=== PATIENT | female | born 1990 | race Caucasian/White ===

== ENCOUNTER 2017-02-07 17:54 | Emergency (ER) | payer SELFPAY | END 2017-02-07 19:17 | disposition home or self-care (01) | LOC: D.ER 17:54 | DX: K05.10 Chronic gingivitis, plaque induced (principal); J44.9 Chronic obstructive pulmonary disease, unspecified; M26.609 Unspecified temporomandibular joint disorder, unspecified side ==

== ENCOUNTER 2017-07-22 18:49 | Emergency (ER) | payer BC ==
[2017-07-22 19:50] LABS: HCG SERUM NEGATIVE (NEGATIVE)
[2017-07-22 19:52] LABS: BASOPHILS 0.3 % (0-2); EOSINOPHILS 2.8 % (0-7); HEMOGLOBIN 15.2 g/dL (12-16); IMMATURE GRANULOCYTES 0.1 % (0-5); LYMPHOCYTES 24.8 % (15-50); MCH 30.2 pg (26.0-34.0); MCHC 34.5 g/dL (31.0-37.0); MCV 87.5 fL (80.0-100.0); MEAN PLATELET VOLUME 10.3 fL (7.4-10.4); MONOCYTES 7.4 % (2-11); NEUTROPHILS 64.6 % (40-80); PLATELET COUNT 291 10x3/uL (130-400); RBC 5.03 10x6/uL (4.00-5.40); RDW 12.7 % (11.5-14.5); WBC 9.9 10x3/uL (4.8-10.8)
[2017-07-22 19:56] LABS: APPEARANCE HAZY (CLEAR); BACTERIA MODERATE /hpf (NONE SEEN); BILIRUBIN NEGATIVE (NEGATIVE); COLOR DK YELLOW (YELLOW); GLUCOSE NEGATIVE (NEGATIVE); KETONE NEGATIVE (NEGATIVE); MUCUS <1+ /lpf (NONE SEEN); NITRITE NEGATIVE (NEGATIVE); PROTEIN NEGATIVE (NEGATIVE); RED CELLS - URINE 0-5 /hpf (0-5); SPECIFIC GRAVITY 1.015 (1.005-1.020); UROBILINOGEN NORMAL (NORMAL); WHITE CELLS - URINE 25-50 /hpf (0-5)
[2017-07-22 22:46] LABS: ALBUMIN 3.8 g/dL (3.4-5.0); ANION GAP 13.8 mmol/L (8-16); BILIRUBIN - TOTAL 0.55 mg/dL (0.2-1.3); CALCIUM 9.1 mg/dL (8.5-10.1); CARBON DIOXIDE 25.8 mmol/L (21.0-32.0); POTASSIUM - SERUM 3.6 mmol/L (3.5-5.1)
== END 2017-07-23 02:00 | disposition home or self-care (01) ==
LOC: D.ER 18:49
PROVIDERS: Emergency Medicine; Physician Assistant
DX: R10.31 Right lower quadrant pain (principal); R11.2 Nausea with vomiting, unspecified; Z86.69 Personal history of other diseases of the nervous system and sense organs; N39.0 Urinary tract infection, site not specified; J44.9 Chronic obstructive pulmonary disease, unspecified; F17.200 Nicotine dependence, unspecified, uncomplicated

== ENCOUNTER 2017-08-21 21:47 | Emergency (ER) | payer BC | END 2017-08-21 22:25 | disposition home or self-care (01) | LOC: D.ER 21:47 | DX: S41.112A Laceration without foreign body of left upper arm, initial encounter (principal); W26.9XXA Contact with unspecified sharp object(s), initial encounter; Y93.89 Activity, other specified; Y92.89 Other specified places as the place of occurrence of the external cause; J44.9 Chronic obstructive pulmonary disease, unspecified ==

== ENCOUNTER 2018-04-19 11:12 | Emergency (ER) | payer BC ==
[~2018-04-19] VITALS: Ht 162.6 cm; Wt 61.4 kg
[2018-04-19 11:23] VITALS: BP 160/78; Ht 162.6 cm; Wt 61.4 kg
[2018-04-19] MEDS ORDERED: MACROBID100 MG PO (11:24)
[2018-04-19 11:54] LABS: BASOPHILS 0.2 % (0-2); EOSINOPHILS 3.2 % (0-7); HEMATOCRIT 40.4 % (36.0-48.0); HEMOGLOBIN 13.9 g/dL (12-16); IMMATURE GRANULOCYTES 0.2 % (0-5); LYMPHOCYTES 12.5 % (15-50); MCH 30.2 pg (26.0-34.0); MCHC 34.4 g/dL (31.0-37.0); MCV 87.8 fL (80.0-100.0); MONOCYTES 7.2 % (2-11); NEUTROPHILS 76.7 % (40-80); PLATELET COUNT 278 10x3/uL (130-400); RDW 13.3 % (11.5-14.5); WBC 12.7 10x3/uL (4.8-10.8)
[2018-04-19 12:04] LABS: UDS - AMPHET NEGATIVE QUAL (NEGATIVE); UDS - BARB NEGATIVE QUAL (NEGATIVE); UDS - BENZO NEGATIVE QUAL (NEGATIVE); UDS - COCAINE NEGATIVE QUAL (NEGATIVE); UDS - OPIATE NEGATIVE QUAL (NEGATIVE); UDS - PCP NEGATIVE QUAL (NEGATIVE); UDS - THC NEGATIVE QUAL (NEGATIVE)
[2018-04-19 12:15] LABS: ALBUMIN 3.7 g/dL (3.4-5.0); ALKALINE PHOSPHATASE 75 U/L (46-116); ALT (SGPT) 26 U/L (10-68); BILIRUBIN - TOTAL 0.15 mg/dL (0.2-1.3); CALC OSMOLALITY 274 mosm/kg (275-300); CALCIUM 8.8 mg/dL (8.5-10.1); CARBON DIOXIDE 30.8 mmol/L (21.0-32.0); CHLORIDE - SERUM 102 mmol/L (98-107); CREATININE - SERUM 0.6 mg/dL (0.6-1.3); GLUCOSE 87 mg/dL (74-106); POTASSIUM - SERUM 4.5 mmol/L (3.5-5.1); PROTEIN - SERUM 7.3 g/dL (6.4-8.2); SODIUM 140 mmol/L (136-145); UREA NITROGEN 4 mg/dL (7-18); eGFR NON AFRICAN AMERICAN > 90 mL/min (90-120)
[2018-04-19 12:52] LABS: APPEARANCE CLEAR (CLEAR); BILIRUBIN NEGATIVE (NEGATIVE); COLOR STRAW (YELLOW); GLUCOSE NEGATIVE (NEGATIVE); KETONE NEGATIVE (NEGATIVE); NITRITE NEGATIVE (NEGATIVE); PROTEIN NEGATIVE (NEGATIVE); SPECIFIC GRAVITY 1.005 (1.005-1.020); UROBILINOGEN NORMAL (NORMAL)
[2018-04-19 12:53] LABS: BACTERIA FEW /hpf (NONE SEEN); EPITHELIAL CELLS 0-5 /hpf (0-5); RED CELLS - URINE 0-5 /hpf (0-5); WHITE CELLS - URINE 0-5 /hpf (0-5)
[2018-04-19 13:49] LABS: HCG - QUANTITATIVE (MATERNAL) 3542 mIU/mL
== END 2018-04-19 14:00 | disposition home or self-care (01) ==
LOC: D.ER 11:12
PROVIDERS: Family Medicine
DX: O03.9 Complete or unspecified spontaneous abortion without complication (principal); F17.200 Nicotine dependence, unspecified, uncomplicated